=== PATIENT | female | born 1990 | race Caucasian/White ===

== ENCOUNTER 2018-07-15 19:31 | Inpatient (IN) | payer MEDICAID ==
[2018-07-15 20:11] LABS: ADD MAN DIFF? NO
[2018-07-15 20:17] LABS: PROTIME 11.1 Sec (11.9-14.9); PT RATIO 0.9
[2018-07-15 20:20] LABS: BASOPHILS % 0.2 % (0.0-2.0); EOSINOPHILS % 0.4 % (0.0-7.0); HEMATOCRIT 33.8 % (37.0-47.0); HEMOGLOBIN 11.6 g/dl (12.0-16.0); LYMPHOCYTES # 1.7 10^3/ul (0.8-2.9); MEAN CORPUSCULAR HGB CONC 34.3 g/dl (32.0-37.0); MEAN CORPUSCULAR VOLUME 93.4 fl (82.0-101.0); MEAN PLATELET VOLUME 12.1 fl (7.4-10.4); MONOCYTE # 0.7 10^3/ul (0.3-0.9); MONOCYTES % 7.8 % (0.0-11.0); NEUTROPHIL # 6.8 10^3/ul (1.6-7.5); PLATELET COUNT 159 10^3/UL (140-415); RED BLOOD COUNT 3.62 10^6/ul (4.20-5.40); RED CELL DISTRIBUTION WIDTH 12.2 % (11.5-14.5)
[2018-07-15 20:20] LABS: WHITE BLOOD COUNT 9.3 10^3/ul (4.8-10.8)
[2018-07-15] MEDS: LACTATED RINGER'S 1,000 ML IV* (20:26)
[2018-07-15] MEDS ORDERED: IBUPROFEN 600 MG TAB PO (20:30)
[2018-07-15] MEDS ORDERED: BUTORPHANOL 2 MG INJ IV (20:30)
[2018-07-15] MEDS ORDERED: AMPICILLIN 2 GM/NS (PMX) 100 ML IV (20:30)
[2018-07-15] MEDS ORDERED: CARBOPROST 250 MCG INJ IM (20:30)
[2018-07-15] MEDS ORDERED: LIDOCAINE 1% (MPF) 30 ML INJ INJ (20:30)
[2018-07-15] MEDS ORDERED: MISOPROSTOL 200 MCG TAB PR (20:30)
[2018-07-15] MEDS ORDERED: OXYTOCIN 30 UNITS/LR 500 ML IV ×2 (20:30)
[2018-07-15 20:54] LABS: HEPATITIS B SURFACE ANTIGEN NEGATIVE (NEGATIVE)
[2018-07-15] MEDS: DEXTROSE 5%-LR 1,000 ML IV (22:30)
[2018-07-16] MEDS ORDERED: AMPICILLIN 1 GM/NS (PMX) 50 ML IV (00:30)
[2018-07-16] MEDS: OXYTOCIN 30 UNITS/LR 500 ML IV ×2 (02:19→02:34)
[2018-07-16] MEDS: METHYLERGONOVINE 0.2 MG INJ IM (02:21)
[2018-07-16] MEDS: MINERAL OIL LIGHT 10 ML VIAL TOP (02:21)
[2018-07-16] MEDS: LIDOCAINE 0.5% (SDV) 50 ML INJ INJ (02:21)
[2018-07-16 03:59] LABS: ADD MAN DIFF? NO
[2018-07-16 04:05] LABS: ADD UMIC NO; UR ASCORBIC ACID NEGATIVE (NEGATIVE); UR BILIRUBIN (Dip) NEGATIVE (NEGATIVE); UR BLOOD (Dip) NEGATIVE (NEGATIVE); UR CLARITY CLEAR (CLEAR); UR COLOR YELLOW (YELLOW); UR GLUCOSE (Dip) NEGATIVE (NEGATIVE); UR KETONES (Dip) 1+ mg/dL (NEGATIVE); UR LEUKOCYTE ESTERASE (Dip) NEGATIVE Leu/ul (NEGATIVE); UR NITRITE (Dip) NEGATIVE (NEGATIVE); UR SPECIFIC GRAVITY (Dip) 1.008 (1.003-1.030); UR TOTAL PROTEIN (Dip) NEGATIVE (NEGATIVE); UR UROBILINOGEN (Dip) NEGATIVE (NEGATIVE)
[2018-07-16 04:22] LABS: ALANINE AMINOTRANSFERASE 37 IU/L (13-69); ALBUMIN 3.1 g/dl (3.3-4.9); ALKALINE PHOSPHATASE 376 IU/L (42-121); ANION GAP 8 (5-13); ASPARTATE AMINO TRANSFERASE 43 IU/L (15-46); BILIRUBIN,INDIRECT 0.7 mg/dl (0-1.1); BILIRUBIN,TOTAL 0.7 mg/dl (0.2-1.3); BLOOD UREA NITROGEN 10 mg/dl (7-20); CALCIUM 8.8 mg/dl (8.4-10.2); CARBON DIOXIDE 20 mmol/L (21-31); CHLORIDE 111 mmol/L (97-110); CREATININE 0.62 mg/dl (0.44-1.00); Estimated GFR > 60 mL/min (>60); GLUCOSE 112 mg/dl (70-220); POTASSIUM 3.9 mmol/L (3.5-5.1); SODIUM 139 mmol/L (135-144); TOTAL PROTEIN 6.2 g/dl (6.1-8.1); URIC ACID 6.3 mg/dl (3.1-7.9)
[2018-07-16 04:48] LABS: BASOPHILS % 0.2 % (0.0-2.0); EOSINOPHILS % 0.1 % (0.0-7.0); HEMATOCRIT 36.3 % (37.0-47.0); HEMOGLOBIN 12.6 g/dl (12.0-16.0); LYMPHOCYTES # 1.1 10^3/ul (0.8-2.9); MEAN CORPUSCULAR HEMOGLOBIN 32.1 pg (29.0-33.0); MEAN CORPUSCULAR HGB CONC 34.7 g/dl (32.0-37.0); MEAN CORPUSCULAR VOLUME 92.6 fl (82.0-101.0); MEAN PLATELET VOLUME 12.2 fl (7.4-10.4); MONOCYTE # 0.9 10^3/ul (0.3-0.9); MONOCYTES % 5.2 % (0.0-11.0); NEUTROPHIL # 15.5 10^3/ul (1.6-7.5); NEUTROPHILS % 87.3 % (39.0-77.0); PLATELET COUNT 148 10^3/UL (140-415); RED BLOOD COUNT 3.92 10^6/ul (4.20-5.40); RED CELL DISTRIBUTION WIDTH 12.2 % (11.5-14.5)
[2018-07-16 04:48] LABS: WHITE BLOOD COUNT 17.7 10^3/ul (4.8-10.8)
[2018-07-16] MEDS: LACTATED RINGER'S 1,000 ML IV* ×3 (05:28→21:28)
[2018-07-16] MEDS ORDERED: OXYTOCIN 30 UNITS/LR 500 ML IV (05:30)
[2018-07-16] MEDS ORDERED: MISOPROSTOL 200 MCG TAB PR (05:30)
[2018-07-16] MEDS ORDERED: CARBOPROST 250 MCG INJ IM (05:30)
[2018-07-16] MEDS ORDERED: HYDROCODONE/APAP (5/325) TAB PO (05:30)
[2018-07-16] MEDS ORDERED: METHYLERGONOVINE 0.2 MG INJ IM (05:30)
[2018-07-16] MEDS ORDERED: DIBUCAINE 1% 30 GM OINT PR (05:30)
[2018-07-16] MEDS ORDERED: ACETAMINOPHEN 325 MG TAB PO (05:30)
[2018-07-16] MEDS: IBUPROFEN 600 MG TAB PO ×3 (06:02→18:01)
[2018-07-16] MEDS: WITCH HAZEL/GLYCERIN PAD PR (07:02)
[2018-07-16] MEDS: BENZOCAINE 20% 56 ML SPRAY TOP (07:02)
[2018-07-16] MEDS: LANOLIN 7 GM TUBE TOP (07:03)
[2018-07-16] MEDS: SENNA/DOCUSATE NA (8.6MG/50MG) TAB PO ×2 (08:52→21:07)
[2018-07-16 15:19] LABS: RAPID PLASMA REAGIN NONREACTIVE (NR)
[2018-07-17] MEDS: LACTATED RINGER'S 1,000 ML IV* ×3 (05:28→21:28)
[2018-07-17] MEDS: IBUPROFEN 600 MG TAB PO ×5 (06:00→23:35)
[2018-07-17 08:54] LABS: ADD MAN DIFF? NO
[2018-07-17 09:01] LABS: WHITE BLOOD COUNT 13.9 10^3/ul (4.8-10.8)
[2018-07-17 09:01] LABS: BASOPHILS % 0.1 % (0.0-2.0); EOSINOPHILS # 0.1 10^3/ul (0.0-0.5); EOSINOPHILS % 0.5 % (0.0-7.0); HEMATOCRIT 26.7 % (37.0-47.0); HEMOGLOBIN 8.9 g/dl (12.0-16.0); LYMPHOCYTES # 2.9 10^3/ul (0.8-2.9); LYMPHOCYTES % 20.9 % (15.0-51.0); MEAN CORPUSCULAR HEMOGLOBIN 31.9 pg (29.0-33.0); MEAN CORPUSCULAR HGB CONC 33.3 g/dl (32.0-37.0); MEAN CORPUSCULAR VOLUME 95.7 fl (82.0-101.0); MEAN PLATELET VOLUME 12.1 fl (7.4-10.4); MONOCYTE # 0.9 10^3/ul (0.3-0.9); MONOCYTES % 6.3 % (0.0-11.0); NEUTROPHIL # 9.9 10^3/ul (1.6-7.5); NEUTROPHILS % 71.3 % (39.0-77.0); PLATELET COUNT 138 10^3/UL (140-415); RED BLOOD COUNT 2.79 10^6/ul (4.20-5.40); RED CELL DISTRIBUTION WIDTH 12.5 % (11.5-14.5)
[2018-07-17] MEDS: SENNA/DOCUSATE NA (8.6MG/50MG) TAB PO ×2 (11:30→21:30)
[2018-07-18] MEDS: LACTATED RINGER'S 1,000 ML IV* (05:28)
[2018-07-18] MEDS: IBUPROFEN 600 MG TAB PO ×2 (05:47→12:16)
[2018-07-18] MEDS: SENNA/DOCUSATE NA (8.6MG/50MG) TAB PO (12:16)
[2018-07-18] MEDS: DIPHTH/TET/ACEL PERTUSS (ADULT) 0.5 ML VIAL IM* (12:17)
== END 2018-07-18 18:13 | disposition home or self-care (01) | DRG 807 ==
LOC: PP1 07-16 04:56 → L-D 19:31
PROVIDERS: Obstetrics & Gynecology
PROC: 10E0XZZ Delivery of Products of Conception, External Approach (ICD-10-PCS; principal; 2018-07-16)
PROC: 0HQ9XZZ Repair Perineum Skin, External Approach (ICD-10-PCS; 2018-07-16)
PROC: 3E033VJ Introduction of Other Hormone into Peripheral Vein, Percutaneous Approach (ICD-10-PCS; 2018-07-16)
DX: O70.0 First degree perineal laceration during delivery (principal); Z37.0 Single live birth; Z3A.39 39 weeks gestation of pregnancy
CPT/HCPCS: 80053; 81003; 84560; 85025; 85384; 85610; 85730; 86592; 86850; 86900; 86901; 87340; 90715; 99464